=== PATIENT | male | born 1960 | race Caucasian/White ===

== ENCOUNTER → 2022-03-24 15:15 | Outpatient (CLI) | payer MEDICARE, SELFPAY ==
[2022-03-24 20:00] LABS: INR 2.88 (0.9-1.1); Prothrombin Time 29.3 seconds (10.1-12.5)
== END ==
PROVIDERS: PCP Family Medicine; Visit Provider Family Medicine
DX: Z79.01 Long term (current) use of anticoagulants (principal); Z51.81 Encounter for therapeutic drug level monitoring
CPT/HCPCS: 85610

== ENCOUNTER → 2022-09-28 10:17 | Outpatient (CLI) | payer MEDICARE, SELFPAY ==
[2022-09-28 17:05] LABS: Basophils # 0.1 K/mm3 (0-0.2); Basophils % 0.9 % (0.1-2.0); Eosinophils # 0.3 K/mm3 (0.0-0.4); Eosinophils % 2.8 % (0.1-12.0); Hematocrit 48.4 % (42.0-52.0); Hemoglobin 16.8 g/dL (14.1-18.0); Lymphocytes # 2.7 K/mm3 (0.7-4.5); Mean Corpuscular HGB Conc 34.6 g/dL (31.8-35.4); Mean Corpuscular Hemoglobin 32.6 pg (27.0-31.2); Mean Corpuscular Volume 94.1 fl (80-94); Mean Platelet Volume 10.8 fl (7.4-10.4); Monocytes # 0.4 K/mm3 (0.1-1.0); Monocytes % 3.7 % (1.7-9.3); Neutrophils # 7.4 K/mm3 (1.8-7.8); Neutrophils % 67.6 % (37.0-80.0); Platelet Count 191 K/mm3 (142-424); Red Blood Count 5.14 M/mm3 (4.60-6.20); Red Cell Distribution Width 13.1 % (11.5-17.5); White Blood Count 10.9 K/mm3 (4.8-10.8)
[2022-09-28 17:19] LABS: Erythrocyte Sedimentation Rate 13 mm/hr (0-20)
[2022-09-28 18:19] LABS: Chloride 87 mmol/L (98-107); Potassium 3.6 mmoL/L (3.5-5.1); Sodium 127 mmol/L (136-145)
[2022-09-28 18:22] LABS: Alanine Aminotransferase 26 U/L (12-78); Albumin Level 4.5 g/dl (3.5-5.0); Albumin/Globulin Ratio 1.9 (1.1-1.8); Alkaline Phosphatase 242 U/L (38-126); Anion Gap 13.6 mEq/L (5-15); Aspartate Amino Transferase 28 U/L (17-59); Bilirubin,Total 0.8 mg/dl (0.2-1.3); Blood Urea Nitrogen 14 mg/dl (9-20); Calcium 9.4 mg/dl (8.4-10.2); Carbon Dioxide 30 mmol/L (22.0-30.0); Estimated Glomerular Filt Rate 68 ml/min (>60); GFR (African American) 83 ML/MIN (>60); Globulin 2.4 g/dL (1.3-3.2); Total Protein,Serum 6.9 g/dl (6.3-8.2)
[2022-09-28 18:40] LABS: T4 (Thyroxine) 11.4 ug/dl (5.53-11.0)
[2022-09-28 18:48] LABS: Glucose 597 mg/dl (74-100)
[2022-09-28 18:53] LABS: Thyroid Stimulating Hormone 1.76 uIU/mL (0.465-4.68)
[2022-09-29 16:40] LABS: Hemoglobin A1C > 14.0 % (4.0-6.0)
[2022-09-30 09:17] LABS: RA Latex Turbid. <10.0 IU/mL (<14.0)
[2022-10-09 02:07] LABS: Antinuclear Antibodies (ANA) POSITIVE
== END ==
PROVIDERS: PCP Family Medicine; Visit Provider Family Medicine
DX: R53.83 Other fatigue (principal); R63.4 Abnormal weight loss; I10 Essential (primary) hypertension; R73.9 Hyperglycemia, unspecified
CPT/HCPCS: 80053; 83036; 84436; 84443; 85025; 85651; 86038; 86431

== ENCOUNTER → 2022-10-02 11:19 | Outpatient (CLI) | payer MEDICARE, SELFPAY ==
[2022-10-02 17:30] LABS: INR 3.44 (0.9-1.1); Prothrombin Time 34.6 seconds (10.1-12.5)
== END ==
PROVIDERS: PCP Family Medicine; Visit Provider Family Medicine
DX: Z79.01 Long term (current) use of anticoagulants (principal); Z51.81 Encounter for therapeutic drug level monitoring
CPT/HCPCS: 85610

== ENCOUNTER → 2022-11-01 19:14 | Outpatient (CLI) | payer MEDICARE, SELFPAY ==
[2022-11-01 17:18] LABS: INR 4.76 (0.9-1.1)
[2022-11-01 17:43] LABS: Prothrombin Time 47.1 seconds (10.1-12.5)
[2022-11-03 13:17] LABS: Anti-Centromere B Antibodies 1.2 AI (0.0-0.9); Anti-DNA (DS) Ab Qn <1 IU/mL (0-9); Anti-Jo-1 <0.2 AI (0.0-0.9); Anti-Smith Antibody <0.2 AI (0.0-0.9); Antichromatin Antibodies <0.2 AI (0.0-0.9); Antiscleroderma-70 Antibodies <0.2 AI (0.0-0.9); RNP Antibodies <0.2 AI (0.0-0.9); Sjogren's Anti-SS-A <0.2 AI (0.0-0.9); Sjogren's Anti-SS-B <0.2 AI (0.0-0.9)
== END ==
PROVIDERS: PCP Family Medicine; Visit Provider Family Medicine
DX: Z79.01 Long term (current) use of anticoagulants (principal); R76.8 Other specified abnormal immunological findings in serum; Z51.81 Encounter for therapeutic drug level monitoring
CPT/HCPCS: 85610; 86225; 86235

== ENCOUNTER → 2022-11-22 17:31 | Outpatient (CLI) | payer MEDICARE, SELFPAY ==
[2022-11-22 17:10] LABS: INR 3.73 (0.9-1.1); Prothrombin Time 37.4 seconds (10.1-12.5)
== END ==
PROVIDERS: PCP Family Medicine; Visit Provider Family Medicine
DX: Z79.01 Long term (current) use of anticoagulants (principal); Z51.81 Encounter for therapeutic drug level monitoring
CPT/HCPCS: 85610

== ENCOUNTER → 2023-01-02 14:27 | Outpatient (CLI) | payer MEDICARE, SELFPAY ==
[2023-01-02 14:14] LABS: Hemoglobin A1C 8.1 % (4.0-6.0)
[2023-01-02 14:20] LABS: Creatinine,Urine Random 223 mg/dL (Not Estab.)
[2023-01-02 14:25] LABS: INR 1.09 (0.9-1.1); Prothrombin Time 11.7 seconds (10.1-12.5)
== END ==
PROVIDERS: PCP Family Medicine; Visit Provider Family Medicine
DX: E11.9 Type 2 diabetes mellitus without complications (principal); Z79.01 Long term (current) use of anticoagulants; Z51.81 Encounter for therapeutic drug level monitoring; Z79.84 Long term (current) use of oral hypoglycemic drugs
CPT/HCPCS: 82043; 82570; 83036; 85610

== ENCOUNTER → 2023-02-07 11:00 | Outpatient (CLI) | payer MEDICARE, SELFPAY ==
[2023-02-07 16:44] LABS: INR 2.07 (0.9-1.1); Prothrombin Time 21.5 seconds (10.1-12.5)
== END ==
PROVIDERS: PCP Family Medicine; Visit Provider Family Medicine
DX: I48.91 Unspecified atrial fibrillation (principal); Z51.81 Encounter for therapeutic drug level monitoring; Z79.01 Long term (current) use of anticoagulants
CPT/HCPCS: 85610

== ENCOUNTER → 2023-03-13 16:53 | Outpatient (CLI) | payer MEDICARE, SELFPAY ==
[2023-03-13 17:00] LABS: Prothrombin Time 64.2 seconds (10.1-12.5)
[2023-03-13 17:01] LABS: INR 6.73 (0.9-1.1)
== END ==
PROVIDERS: PCP Family Medicine; Visit Provider Family Medicine
DX: Z51.81 Encounter for therapeutic drug level monitoring (principal); Z79.01 Long term (current) use of anticoagulants
CPT/HCPCS: 85610

== ENCOUNTER → 2023-04-06 07:04 | Outpatient (CLI) | payer MEDICARE, SELFPAY ==
[2023-04-06 16:29] LABS: Basophils # 0.1 K/mm3 (0-0.2); Basophils % 0.7 % (0.1-2.0); Eosinophils # 0.3 K/mm3 (0.0-0.4); Hematocrit 47.6 % (42.0-52.0); Hemoglobin 15.2 g/dL (14.1-18.0); Lymphocytes # 3.2 K/mm3 (0.7-4.5); Lymphocytes % 28.8 % (10-50); Mean Corpuscular Hemoglobin 32.1 pg (27.0-31.2); Mean Corpuscular Volume 100.5 fl (80-94); Mean Platelet Volume 9.9 fl (7.4-10.4); Monocytes # 0.5 K/mm3 (0.1-1.0); Monocytes % 4.1 % (1.7-9.3); Neutrophils # 7.1 K/mm3 (1.8-7.8); Neutrophils % 63.5 % (37.0-80.0); Platelet Count 246 K/mm3 (142-424); Red Blood Count 4.73 M/mm3 (4.60-6.20); Red Cell Distribution Width 13.5 % (11.5-17.5); White Blood Count 11.1 K/mm3 (4.8-10.8)
[2023-04-06 16:58] LABS: Hemoglobin A1C 6.5 % (4.0-6.0)
[2023-04-06 17:07] LABS: INR 5.62 (0.9-1.1); Prothrombin Time 54.2 seconds (10.1-12.5)
[2023-04-06 17:09] LABS: Chloride 104 mmol/L (98-107); Potassium 4.2 mmoL/L (3.5-5.1); Sodium 138 mmol/L (136-145)
[2023-04-06 17:12] LABS: Alanine Aminotransferase 26 U/L (12-78); Albumin Level 4.1 g/dl (3.5-5.0); Albumin/Globulin Ratio 1.5 (1.1-1.8); Alkaline Phosphatase 75 U/L (38-126); Anion Gap 16.2 mEq/L (5-15); Aspartate Amino Transferase 29 U/L (17-59); Bilirubin,Total 0.5 mg/dl (0.2-1.3); Blood Urea Nitrogen 15 mg/dl (9-20); Calcium 9.5 mg/dl (8.4-10.2); Carbon Dioxide 22 mmol/L (22.0-30.0); Estimated Glomerular Filt Rate 48 ml/min (>60); GFR (African American) 58 ML/MIN (>60); Globulin 2.7 g/dL (1.3-3.2); Glucose 143 mg/dl (74-100); Total Protein,Serum 6.8 g/dl (6.3-8.2)
== END ==
PROVIDERS: PCP Family Medicine; Visit Provider Family Medicine
DX: Z79.01 Long term (current) use of anticoagulants (principal); I10 Essential (primary) hypertension; E11.9 Type 2 diabetes mellitus without complications; Z51.81 Encounter for therapeutic drug level monitoring; Z79.84 Long term (current) use of oral hypoglycemic drugs
CPT/HCPCS: 80053; 83036; 85025; 85610

== ENCOUNTER → 2023-04-27 08:31 | Outpatient (CLI) | payer MEDICARE, SELFPAY ==
[2023-04-27 18:02] LABS: INR 5.35 (0.9-1.1); Prothrombin Time 51.8 seconds (10.1-12.5)
== END ==
PROVIDERS: PCP Family Medicine; Visit Provider Family Medicine
DX: Z79.01 Long term (current) use of anticoagulants (principal)
CPT/HCPCS: 85610

== ENCOUNTER → 2023-05-07 23:25 | Outpatient (CLI) | payer MEDICARE, SELFPAY ==
[2023-05-07 17:15] LABS: INR 1.08 (0.9-1.1); Prothrombin Time 11.6 seconds (10.1-12.5)
== END ==
PROVIDERS: PCP Family Medicine; Visit Provider Family Medicine
DX: Z79.01 Long term (current) use of anticoagulants (principal)
CPT/HCPCS: 85610

== ENCOUNTER → 2023-05-25 15:10 | Outpatient (CLI) | payer MEDICARE, SELFPAY ==
[2023-05-25 18:58] LABS: Prothrombin Time 12.8 seconds (10.1-12.5)
== END ==
PROVIDERS: PCP Family Medicine; Visit Provider Nurse Practitioner Family
DX: I35.9 Nonrheumatic aortic valve disorder, unspecified (principal)
CPT/HCPCS: 85610

== ENCOUNTER → 2023-06-22 08:43 | Outpatient (CLI) | payer MEDICARE, SELFPAY ==
[2023-06-22 16:59] LABS: INR 2.06 (0.9-1.1); Prothrombin Time 21.2 seconds (10.1-12.5)
== END ==
PROVIDERS: PCP Family Medicine; Visit Provider Family Medicine
DX: D69.9 Hemorrhagic condition, unspecified (principal)
CPT/HCPCS: 85610

== ENCOUNTER 2023-08-03 16:20 | Outpatient (CLI) | payer MEDICARE, SELFPAY ==
[2023-08-03 16:48] LABS: INR 1.21 (0.9-1.1); Prothrombin Time 12.9 seconds (10.1-12.5)
== END 2023-08-03 23:59 ==
LOC: LAB.DROPOF 16:20
PROVIDERS: PCP Nurse Practitioner Family; Visit Provider Nurse Practitioner Family
DX: Z79.01 Long term (current) use of anticoagulants (principal); Z51.81 Encounter for therapeutic drug level monitoring
CPT/HCPCS: 85610

== ENCOUNTER 2023-08-31 16:27 | Outpatient (CLI) | payer MEDICARE, SELFPAY ==
[2023-08-31 16:49] LABS: Basophils # 0.1 K/mm3 (0-0.2); Basophils % 0.7 % (0.1-2.0); Eosinophils # 0.2 K/mm3 (0.0-0.4); Eosinophils % 1.8 % (0.1-12.0); Hematocrit 46.6 % (42.0-52.0); Hemoglobin 15.5 g/dL (14.1-18.0); Lymphocytes # 3.8 K/mm3 (0.7-4.5); Mean Corpuscular HGB Conc 33.3 g/dL (31.8-35.4); Mean Corpuscular Hemoglobin 33.2 pg (27.0-31.2); Mean Corpuscular Volume 99.6 fl (80-94); Mean Platelet Volume 9.5 fl (7.4-10.4); Monocytes # 0.6 K/mm3 (0.1-1.0); Neutrophils # 7.2 K/mm3 (1.8-7.8); Neutrophils % 60.4 % (37.0-80.0); Platelet Count 236 K/mm3 (142-424); Red Blood Count 4.67 M/mm3 (4.60-6.20); Red Cell Distribution Width 13.4 % (11.5-17.5); White Blood Count 11.9 K/mm3 (4.8-10.8)
[2023-08-31 16:55] LABS: INR 1.86 (0.9-1.1); Prothrombin Time 19.3 seconds (10.1-12.5)
[2023-08-31 16:56] LABS: Alanine Aminotransferase 26 U/L (12-78); Albumin Level 4.2 g/dl (3.5-5.0); Albumin/Globulin Ratio 1.7 (1.1-1.8); Alkaline Phosphatase 95 U/L (38-126); Aspartate Amino Transferase 28 U/L (17-59); Bilirubin,Total 0.6 mg/dl (0.2-1.3); Blood Urea Nitrogen 15 mg/dl (9-20); Calcium 9.7 mg/dl (8.4-10.2); Carbon Dioxide 29 mmol/L (22.0-30.0); Chloride 100 mmol/L (98-107); Estimated Glomerular Filt Rate 56 ml/min (>60); GFR (African American) 68 ML/MIN (>60); Globulin 2.5 g/dL (1.3-3.2); Glucose 162 mg/dl (74-100); Sodium 137 mmol/L (136-145); Total Protein,Serum 6.7 g/dl (6.3-8.2)
[2023-08-31 19:44] LABS: Hemoglobin A1C 7.1 % (4.0-6.0)
== END 2023-08-31 23:59 ==
LOC: LAB.DROPOF 16:28
PROVIDERS: PCP Family Medicine; Visit Provider Family Medicine
DX: E11.9 Type 2 diabetes mellitus without complications (principal); Z79.01 Long term (current) use of anticoagulants; I10 Essential (primary) hypertension; Z79.84 Long term (current) use of oral hypoglycemic drugs
CPT/HCPCS: 80053; 83036; 85025; 85610

== ENCOUNTER 2023-10-04 16:47 | Outpatient (CLI) | payer MEDICARE, SELFPAY ==
[2023-10-04 17:05] LABS: INR 4.09 (0.9-1.1); Prothrombin Time 40.3 seconds (10.1-12.5)
== END 2023-10-04 23:59 ==
LOC: LAB.DROPOF 16:47
PROVIDERS: PCP Family Medicine; Visit Provider Family Medicine
DX: Z51.81 Encounter for therapeutic drug level monitoring (principal); Z79.01 Long term (current) use of anticoagulants
CPT/HCPCS: 85610

== ENCOUNTER 2023-12-03 10:39 | Outpatient (CLI) | payer MEDICARE, SELFPAY ==
[2023-12-03 16:32] LABS: INR 2.66 (0.9-1.1); Prothrombin Time 26.9 seconds (10.1-12.5)
== END 2023-12-03 23:59 | disposition home or self-care (01) ==
LOC: LAB.DROPOF 12-04 10:40
PROVIDERS: PCP Family Medicine; Visit Provider Family Medicine
DX: Z79.01 Long term (current) use of anticoagulants (principal); Z51.81 Encounter for therapeutic drug level monitoring
CPT/HCPCS: 85610

== ENCOUNTER 2024-01-23 10:36 | Outpatient (CLI) | payer MEDICARE, SELFPAY ==
[2024-01-23 17:52] LABS: INR 2.86 (0.9-1.1); Prothrombin Time 28.9 seconds (10.1-12.5)
== END 2024-01-23 23:59 | disposition home or self-care (01) ==
LOC: LAB.DROPOF 01-24 10:36
PROVIDERS: PCP Nurse Practitioner Family; Visit Provider Nurse Practitioner Family
DX: I48.91 Unspecified atrial fibrillation (principal)
CPT/HCPCS: 85610

== ENCOUNTER 2024-02-29 16:52 | Outpatient (CLI) | payer MEDICARE, SELFPAY ==
[2024-02-29 16:32] LABS: INR 4.53 (0.9-1.1); Prothrombin Time 43.7 seconds (10.1-12.5)
== END 2024-02-29 23:59 | disposition home or self-care (01) ==
LOC: LAB.DROPOF 16:52
PROVIDERS: PCP Nurse Practitioner Family; Visit Provider Nurse Practitioner Family
DX: Z79.01 Long term (current) use of anticoagulants (principal)
CPT/HCPCS: 85610

== ENCOUNTER 2024-04-03 14:49 | Outpatient (CLI) | payer MEDICARE, SELFPAY ==
[2024-04-03 16:37] LABS: INR 2.22 (0.9-1.1)
== END 2024-04-03 23:59 | disposition home or self-care (01) ==
LOC: LAB.DROPOF 04-04 12:34
PROVIDERS: PCP Nurse Practitioner Family; Visit Provider Nurse Practitioner Family
DX: R79.1 Abnormal coagulation profile (principal); J32.9 Chronic sinusitis, unspecified; R53.83 Other fatigue
CPT/HCPCS: 85610

== ENCOUNTER 2024-04-24 11:17 | Outpatient (CLI) | payer MEDICARE, SELFPAY ==
--- NOTE | 2024-04-24 11:23 | CT_ITS ---
FINAL REPORT TECHNIQUE: Axial images through the abdomen and pelvis were performed without contrast.This study was performed with techniques to keep radiation doses as low as reasonably achievable, (ALARA). Individualized dose reduction techniques using automated exposure control or adjustment of mA and/or kV according to the patient's size were employed. CLINICAL HISTORY: abdominal bruising right lower abdomen bruising pt on blood thinner FINDINGS: ABDOMEN: There is streak artifact from pacemaker leads. The lung bases are clear. The heart size is normal. Limited images of the liver demonstrate moderate fatty infiltration. Patient is status postcholecystectomy. There are calcified granulomas in the spleen. No adrenal mass is identified. The aorta is normal in caliber. There is no significant free fluid or adenopathy. There is no nephrolithiasis. There is no hydronephrosis. There is a small fat-containing umbilical hernia. Subcutaneous soft tissue stranding is seen in the right anterior pelvic wall. No mass or discrete fluid collection is seen. PELVIS: The appendix is at the upper limits of normal in size but is air-filled and without surrounding inflammation. The urinary bladder is unremarkable. There is no significant free fluid or adenopathy. There is a fat-containing left inguinal hernia. There are advanced changes of degenerative disc disease at L5-S1. IMPRESSION: Stranding in the right anterior pelvic wall without definite mass or fluid collection. Left inguinal hernia. Reviewed, Interpreted and Dictated by Sourav Martins MD Transcribed by Katie Da Silva Authenticated and [facility]
[2024-04-24 13:20] LABS: Basophils # 0.1 K/mm3 (0-0.2); Basophils % 0.9 % (0.1-2.0); Eosinophils # 0.2 K/mm3 (0.0-0.4); Eosinophils % 2.1 % (0.1-12.0); Hematocrit 45.2 % (42.0-52.0); Hemoglobin 16.1 g/dL (14.1-18.0); Lymphocytes # 3.1 K/mm3 (0.7-4.5); Lymphocytes % 29.1 % (10-50); Mean Corpuscular HGB Conc 35.5 g/dL (31.8-35.4); Mean Corpuscular Hemoglobin 33.4 pg (27.0-31.2); Mean Platelet Volume 9.7 fl (7.4-10.4); Monocytes # 0.6 K/mm3 (0.1-1.0); Monocytes % 5.9 % (1.7-9.3); Neutrophils # 6.6 K/mm3 (1.8-7.8); Neutrophils % 62.1 % (37.0-80.0); Platelet Count 228 K/mm3 (142-424); Red Blood Count 4.81 M/mm3 (4.60-6.20); Red Cell Distribution Width 13.9 % (11.5-17.5); White Blood Count 10.7 K/mm3 (4.8-10.8)
[2024-04-24 13:46] LABS: Prothrombin Time 57.1 seconds (10.1-12.5)
== END 2024-04-24 23:59 | disposition home or self-care (01) ==
PROVIDERS: PCP Family Medicine; Visit Provider Family Medicine
DX: K40.90 Unilateral inguinal hernia, without obstruction or gangrene, not specified as recurrent (principal); T14.8XXA Other injury of unspecified body region, initial encounter; Z79.01 Long term (current) use of anticoagulants
CPT/HCPCS: 36415; 74176; 85025; 85610

== ENCOUNTER 2024-05-08 16:32 | Outpatient (CLI) | payer MEDICARE, SELFPAY ==
[2024-05-08 16:58] LABS: INR 1.78 (0.9-1.1); Prothrombin Time 18.8 seconds (10.1-12.5)
== END 2024-05-08 23:59 | disposition home or self-care (01) ==
LOC: LAB.DROPOF 16:33
PROVIDERS: PCP Family Medicine; Visit Provider Family Medicine
DX: Z79.01 Long term (current) use of anticoagulants (principal)
CPT/HCPCS: 85610

== ENCOUNTER 2024-06-05 14:30 | Outpatient (CLI) | payer MEDICARE, SELFPAY ==
[2024-06-05 16:31] LABS: Prothrombin Time 28.3 seconds (10.1-12.5)
== END 2024-06-05 23:59 | disposition home or self-care (01) ==
LOC: LAB.DROPOF 06-06 07:07
PROVIDERS: PCP Family Medicine; Visit Provider Family Medicine
DX: Z79.01 Long term (current) use of anticoagulants (principal)
CPT/HCPCS: 85610

== ENCOUNTER 2024-06-06 10:30 | Outpatient (CLI) | payer MEDICARE, SELFPAY ==
[2024-06-06 16:50] LABS: Microalbumin/Creatinine Ratio 9.5
[2024-06-06 16:51] LABS: Basophils # 0.1 K/mm3 (0-0.2); Basophils % 0.9 % (0.1-2.0); Eosinophils # 0.2 K/mm3 (0.0-0.4); Eosinophils % 2.1 % (0.1-12.0); Hematocrit 46.9 % (42.0-52.0); Hemoglobin 16.1 g/dL (14.1-18.0); Lymphocytes # 2.3 K/mm3 (0.7-4.5); Lymphocytes % 25.5 % (10-50); Mean Corpuscular HGB Conc 34.4 g/dL (31.8-35.4); Mean Corpuscular Hemoglobin 33.5 pg (27.0-31.2); Mean Corpuscular Volume 97.5 fl (80-94); Mean Platelet Volume 10.1 fl (7.4-10.4); Monocytes # 0.5 K/mm3 (0.1-1.0); Monocytes % 5.5 % (1.7-9.3); Neutrophils % 66.1 % (37.0-80.0); Platelet Count 243 K/mm3 (142-424); Red Blood Count 4.81 M/mm3 (4.60-6.20); Red Cell Distribution Width 13.4 % (11.5-17.5); White Blood Count 9.1 K/mm3 (4.8-10.8)
[2024-06-06 16:57] LABS: Creatinine,Urine Random 264 mg/dL (Not Estab.)
[2024-06-06 17:05] LABS: Albumin Level 4.6 g/dl (3.5-5.0); Chloride 101 mmol/L (98-107); Sodium 135 mmol/L (136-145)
[2024-06-06 17:08] LABS: Alanine Aminotransferase 28 U/L (12-78); Albumin/Globulin Ratio 1.8 (1.1-1.8); Alkaline Phosphatase 77 U/L (38-126); Aspartate Amino Transferase 31 U/L (17-59); Bilirubin,Total 0.9 mg/dl (0.2-1.3); Blood Urea Nitrogen 16 mg/dl (9-20); Calcium 9.4 mg/dl (8.4-10.2); Carbon Dioxide 24 mmol/L (22.0-30.0); Cholesterol 233 mg/dl (140-200); Estimated Glomerular Filt Rate 56 ml/min (>60); GFR (African American) 68 ML/MIN (>60); Globulin 2.6 g/dL (1.3-3.2); Glucose 161 mg/dl (74-100); Total Protein,Serum 7.2 g/dl (6.3-8.2); Triglycerides 263 mg/dl (30-150); VLDL Cholesterol 53 mg/dL (0-40)
[2024-06-06 17:09] LABS: Chol/HDL Ratio 6.5 (1-3.5); HDL Cholesterol 36 mg/dl (40-60)
[2024-06-06 17:19] LABS: Direct LDL Cholesterol 132.07 mg/dL (100-129)
[2024-06-06 17:55] LABS: Hemoglobin A1C 7.4 % (4.0-6.0)
[2024-06-06 17:59] LABS: Thyroid Stimulating Hormone 1.43 uIU/mL (0.465-4.68)
[2024-06-06 18:17] LABS: HIV (1&2) Antibody Rapid NONREACTIVE (NONREACTIVE)
[2024-06-06 18:47] LABS: Prostate Specific Ag Screen 0.5 ng/ml (0.0-4.0)
[2024-06-07 09:14] LABS: HCV Ab Non Reactive (Non Reactive)
== END 2024-06-06 23:59 | disposition home or self-care (01) ==
LOC: LAB.DROPOF 06-09 10:27
PROVIDERS: PCP Family Medicine; Visit Provider Family Medicine
DX: E11.9 Type 2 diabetes mellitus without complications (principal); Z12.5 Encounter for screening for malignant neoplasm of prostate; I10 Essential (primary) hypertension
CPT/HCPCS: 80053; 80061; 82043; 82570; 83036; 84443; 85025; 86803; 87389; G0103

== ENCOUNTER 2024-07-01 15:00 | Outpatient (CLI) | payer MEDICARE, SELFPAY ==
[2024-07-01 16:49] LABS: INR 3.33 (0.9-1.1); Prothrombin Time 33.1 seconds (10.1-12.5)
== END 2024-07-01 23:59 | disposition home or self-care (01) ==
LOC: LAB.DROPOF 07-02 09:59
PROVIDERS: PCP Family Medicine; Visit Provider Family Medicine
DX: Z79.01 Long term (current) use of anticoagulants (principal)
CPT/HCPCS: 85610

== ENCOUNTER 2024-08-05 14:15 | Outpatient (CLI) | payer OTHER, SELFPAY ==
[2024-08-05 17:29] LABS: INR 2.67 (0.9-1.1); Prothrombin Time 27.1 seconds (10.1-12.5)
== END 2024-08-05 23:59 | disposition home or self-care (01) ==
LOC: LAB.DROPOF 08-06 13:29
PROVIDERS: PCP Family Medicine; Visit Provider Family Medicine
DX: Z79.01 Long term (current) use of anticoagulants (principal)
CPT/HCPCS: 85610

== ENCOUNTER 2024-10-02 14:42 | Outpatient (CLI) | payer OTHER, SELFPAY ==
[2024-10-02 19:22] LABS: INR 5.16 (0.9-1.1); Prothrombin Time 49.1 seconds (10.1-12.5)
--- NOTE | 2024-10-02 19:36 | EXP.EVENT.NO ---
I contacted patient at 7:34 PM on 10/02. He stated that he felt that his blood was getting a little thing, so he did not take his warfarin yesterday and has not yet taken it today. I instructed patient not to take warfarin today and to follow-up with his family doctor tomorrow, 10/03. He stated he already has phone call follow-up with them tomorrow. I recommended he let them know that his INR was elevated greater than 5 and to follow their recommendations. He voices understanding. States that he has some easy bruising, otherwise no signs or symptoms of bleeding. MD Danielito
== END 2024-10-02 23:59 | disposition home or self-care (01) ==
LOC: LAB.DROPOF 10-03 10:05
PROVIDERS: PCP Family Medicine; Visit Provider Family Medicine
DX: Z79.01 Long term (current) use of anticoagulants (principal)
CPT/HCPCS: 85610

== ENCOUNTER 2024-10-28 14:40 | Outpatient (CLI) | payer OTHER, SELFPAY ==
[2024-10-28 17:53] LABS: INR 3.67 (0.9-1.1); Prothrombin Time 36.1 seconds (10.1-12.5)
== END 2024-10-28 23:59 | disposition home or self-care (01) ==
LOC: LAB.DROPOF 10-29 09:16
PROVIDERS: PCP Family Medicine; Visit Provider Family Medicine
DX: Z79.01 Long term (current) use of anticoagulants (principal)
CPT/HCPCS: 85610

== ENCOUNTER 2024-12-22 14:30 | Outpatient (CLI) | payer OTHER, SELFPAY ==
[2024-12-22 16:40] LABS: Basophils # 0.1 K/mm3 (0-0.2); Basophils % 0.7 % (0.1-2.0); Eosinophils # 0.4 Kmm3 (0.0-0.4); Eosinophils % 3.9 % (0.1-12.0); Hematocrit 43.1 % (42.0-52.0); Hemoglobin 14.4 g/dL (14.1-18.0); Immature Granulocytes # 0.07 10^3uL; Immature Granulocytes % 0.7 %; Lymphocytes # 3.1 K/mm3 (0.7-4.5); Lymphocytes % 32.3 % (10-50); Mean Corpuscular HGB Conc 33.4 g/dL (31.8-35.4); Mean Corpuscular Hemoglobin 32.3 pg (27.0-31.2); Mean Corpuscular Volume 96.6 fl (80-94); Mean Platelet Volume 11.6 fl (7.4-10.4); Monocytes # 0.6 K/mm3 (0.1-1.0); Monocytes % 6.6 % (1.7-9.3); Neutrophils # 5.3 K/mm3 (1.8-7.8); Neutrophils % 55.8 % (37.0-80.0); Nucleated Red Blood Cells # 0 10^3/uL; Nucleated Red Blood Cells % 0 %; Platelet Count 215 K/mm3 (142-424); Red Blood Count 4.46 M/mm3 (4.60-6.20); Red Cell Distribution Width 13.5 % (11.5-17.5); White Blood Count 9.5 K/mm3 (4.8-10.8)
[2024-12-22 17:04] LABS: Alanine Aminotransferase 18 U/L (12-78); Albumin Level 4.3 g/dl (3.5-5.0); Albumin/Globulin Ratio 1.7 (1.1-1.8); Alkaline Phosphatase 73 U/L (38-126); Aspartate Amino Transferase 25 U/L (17-59); Bilirubin,Total 0.6 mg/dl (0.2-1.3); Blood Urea Nitrogen 10 mg/dl (9-20); Calcium 9.1 mg/dl (8.4-10.2); Carbon Dioxide 24 mmol/L (22.0-30.0); Chloride 108 mmol/L (98-107); Estimated Glomerular Filt Rate 61 ml/min (>60); GFR (African American) 74 ML/MIN (>60); Globulin 2.5 g/dL (1.3-3.2); Glucose 93 mg/dl (74-100); Sodium 138 mmol/L (136-145); Total Protein,Serum 6.8 g/dl (6.3-8.2)
[2024-12-22 17:23] LABS: Prothrombin Time 89.8 seconds (10.1-12.5)
[2024-12-22 17:35] LABS: Thyroid Stimulating Hormone 0.99 uIU/mL (0.465-4.68)
== END 2024-12-22 23:59 | disposition home or self-care (01) ==
LOC: LAB.DROPOF 12-23 11:50
PROVIDERS: PCP Family Medicine; Visit Provider Family Medicine
DX: E11.9 Type 2 diabetes mellitus without complications (principal); Z79.01 Long term (current) use of anticoagulants
CPT/HCPCS: 80053; 84443; 85025; 85610

== ENCOUNTER 2024-12-29 14:30 | Outpatient (CLI) | payer OTHER, SELFPAY ==
[2024-12-29 17:17] LABS: Prothrombin Time 54.9 seconds (10.1-12.5)
[2024-12-29 17:18] LABS: INR 5.62 (0.9-1.1)
== END 2024-12-29 23:59 | disposition home or self-care (01) ==
LOC: LAB.DROPOF 12-30 14:42
PROVIDERS: PCP Family Medicine; Visit Provider Family Medicine
DX: Z79.01 Long term (current) use of anticoagulants (principal)
CPT/HCPCS: 85610

== ENCOUNTER 2025-01-26 15:21 | Outpatient (CLI) | payer OTHER, SELFPAY ==
[2025-01-26 18:39] LABS: Prothrombin Time 54.0 seconds (10.1-12.5)
[2025-01-26 18:40] LABS: INR 5.52 (0.9-1.1)
== END 2025-01-26 23:59 | disposition home or self-care (01) ==
LOC: LAB.DROPOF 01-27 09:54
PROVIDERS: PCP Family Medicine; Visit Provider Family Medicine
DX: Z79.01 Long term (current) use of anticoagulants (principal)
CPT/HCPCS: 85610

== ENCOUNTER 2025-03-02 15:00 | Outpatient (CLI) | payer OTHER, SELFPAY ==
--- OUTSIDE RECORDS SUMMARY | 2025-02-25 13:45 | XMS_ITS | Encounter Summary ---
Author Organization [facility] Address [address] [place] [address] Care Team Providers Care Epic Application Coordinator Name Role Phone Alvarez Rae MD Primary Care Provider +1- [phone] Reason for Referral * Diagnostic Imaging (Routine) - Pending Review Specialty Diagnoses / Procedures Referred By Contac t Referred To Contact Diagnoses H/O mechanical aortic valve replacement Procedures Adult Transthoracic Echo Complete W/ Cont if Necessary Per Protocol [place] [address] Phone: tel: fax: [address] [place] [address] Phone: tel: fax: Referral ID Status Reason [...] well on current therapy. DL is in [facility]. Encounter Details Date Type Department [facility] Description 02/25/2025 1:45 PM EDT Office Visit [facility] [address] [place] [address] Kim Daigle MD [address] [place] [address] H/O mechanical aortic valve replacement (Primary Dx); ICD (implantable cardioverter-defibril lator), dual, in situ [Z95.810]; MATTY treated with BiPAP Social History Tobacco Use Types Packs/Day Years Used Date Smoking Tobacco: Every Day Cigarettes 1 40.6 Started: 1984 Passive Smoke Exposure: Never Smokeless [...] well on current therapy. DL is in [facility]. Subjective History of Present Illness Nir Pineda is a 64 y.o. male with niCMP, AVR, ICD who presents today for follow up. Still having beeping from alarms for battery wanring. No change in ICD parameters States that feels good. Denies chest pain or palpitations Denies shortness of breath. Denies swelling Denies lightheadedness or syncope. 02/25/2025 Updated Cardiac history 1. CAD, [id number] per [facility] in 2014 2. Cardiomyopathy 3. Hypertension 4. Mechanical aortic valve replacement 2015 5. MATTY with baseline AHI of [address] 6. [employer] Echocardiogram 03/19/2023 ?? Left ventricular systolic function [...] for primary prevention, Dr. Fabio Fernandes, 06/30/2015: [employer] D140. CHOLECYSTECTOMY 02/2015 Due to acute cholecystitis [...] appointment. Micah Daigle MD Cardiology and Sleep [facility] 02/25/2025 Please note that this explicitly [...] Description 08/31/2025 10:30 AM EST Ancillary Procedure [facility] [address] [place] [address] 08/31/2025 11:30 AM EST Office Visit [facility] [place] [address] Kim Daigle MD [address] [place] [address] 09/14/2025 10:30 AM EST Office Visit [facility] [address] [place] [address] [place] [address] Kim Daigle MD [address] [place] [address] [place] [address] 09/14/2025 10:30 AM EST Clinical Support No Requirements [facility] [address] [place] [address] [place] [address] Scheduled Orders Name Type Priority Associated Diagnoses Orde r Schedule Adult Transthoracic Echo Complete W/ Cont if Necessary Per Protocol Echocardiography Routine H/O mechanical aortic valve replacement Expected: 08/24/2025, Expires: 02/25/2026 documented as of this encounter Visit Diagnoses Diagnosis H/O mechanical aortic valve replacement- Primary ICD (implantable cardioverter-defibrillator), dual, in situ [Z95.810] MATTY treated with BiPAP documented in this encounter Care Teams Epic Application Coordinator Relationship Specialty Start Date End Date Alvarez Rae MD [address] [place] [address] PCP - General Family Medicine 03/19/23 documented as of this encounter
[2025-03-02 17:42] LABS: INR 8.00 (0.9-1.1); Prothrombin Time 90.0 seconds (10.1-12.5)
--- OUTSIDE RECORDS SUMMARY | 2025-03-03 14:40 | XMS_ITS | Encounter Summary ---
[facility] Organization [facility] Address [address] [place] [address] [address] Care [address] Lab Technician Name Role Phone Alvarez Rae MD Primary Care Provider +1- [phone] Reason for Visit * Reason Comments Med Refill Encounter Details Date Type Department Care Team ([facility] Contact Info) Description 09/13/2023 Refill [facility] [address] [place] [address] Kim Daigle MD [address] [place] [address] Med Refill Social History Tobacco Use Types Packs/Day Years Used Date Smoking Tobacco: Some Days Passive Smoke Exposure: Never Comments:6-7 cigarettes abel y Alcohol Use [...] Upcoming Encounters Date Type Department Care Team ([facility] Contact Info) Description 08/31/2025 10:30 AM EST Ancillary Procedure [facility] [address] [place] [address] 08/31/2025 11:30 AM EST Office Visit [facility] [address] [place] [address] Kim Daigle MD [address] [place] [address] 09/14/2025 10:30 AM EST Office Visit [facility] [address] [place] [address] Kim Daigle MD [address] [place] [address] 09/14/2025 10:30 AM EST Clinical Support No Requirements [facility] [address] [facility] [address] documented as of this encounter Visit Diagnoses Not on filedocumented in this encounter Care Teams Rd Lab Technician Relationship Specialty Start Date End Date Alvarez Rae MD [address] [place] [address] PCP - General Family Medicine 03/19/23 documented as of this encounter
--- OUTSIDE RECORDS SUMMARY | 2025-03-03 14:40 | XMS_ITS | Encounter Summary ---
Author Organization [facility] Address [address] [place] [address] Care Team Providers Care Reaming Machine Operator Name Role Phone Alvarez Rae MD Primary Care Provider +1- [phone] Encounter Details Date Type Department Care Team (Latest Contact Info) Description 02/25/2025 Travel Social History Tobacco Use Types Packs/Day Years [...] Description 08/31/2025 10:30 AM EST Ancillary Procedure [facility] [address] [place] [address] 08/31/2025 11:30 AM EST Office Visit [facility] [address] [place] [address] Kim Daigle MD [address] [place] [address] 09/14/2025 10:30 AM EST Office Visit [facility] [address] [place] [address] Kim Daigle MD [address] [place] [address] 09/14/2025 10:30 AM EST Clinical Support No Requirements [facility] [address] [place] [address] documented as of this encounter Visit Diagnoses Not on filedocumented in this encounter Care Teams Reaming Machine Operator Relationship Specialty Start Date End Date Alvarez Rae MD [address] [place] [address] PCP - General Family Medicine 03/19/23 documented as of this encounter
--- OUTSIDE RECORDS SUMMARY | 2025-03-03 14:40 | XMS_ITS | Encounter Summary ---
Author Organization [facility] Address [address] [place] [address] Care Team Providers Care Hog Slaughterer Name Role Phone Alvarez Rae MD Primary Care Provider +1- [phone] Reason for Visit * Reason Comments Med Refill Encounter Details Date Type Department Care Team (Late st Contact Info) Description 10/06/2023 Refill [facility] C[facility] [address] [place] [address] Kim Daigle MD [address] [place] [address] Med Refill Social History Tobacco Use [...] on file documented as of this encounter Miscellaneous Notes * Telephone Encounter - Zeyad Mckoy CMA - 10/08/2023 1:50 PM EDT Informed pharmacy that PCP manages warfarin. They have already taken care of it and faxed it to 's office. * Telephone Encounter - Zeyad Mckoy CMA - 10/08/2023 8:05 AM EDT No protocol. Please advise documented in this encounter Plan of Treatment Upcoming Encounters Date Type Department Care Team (Late st Contact Info) Description 08/31/2025 10:30 AM EST Ancillary Procedure [facility] C[facility] [address] [place] [address] [place] [address] 08/31/2025 11:30 AM EST Office Visit [facility] C[facility] [address] [place] [address] [place] [address] Kim Daigle MD [address] [place] [address] [place] [address] 09/14/2025 10:30 AM EST Office Visit [facility] [address] [place] [address] [place] [address] Kim Daigle MD CLINIC [place] [address] 09/14/2025 10:30 AM EST Clinical Support No Requirements [facility] [address] [place] [address] [place] [address] documented as of this encounter Visit Diagnoses Not on filedocumented in this encounter Care Teams Hog Slaughterer Relationship Specialty Start Date End Date Alvarez Rae MD [address] [place] [address] PCP - General Family Medicine 03/19/23 documented as of this encounter
--- OUTSIDE RECORDS SUMMARY | 2025-03-03 14:40 | XMS_ITS | Clinical Summary ---
Author Organization [facility] Address [address] [place] [address] Care Team Providers Care Chucking Lathe Operator Name Role Phone Alvarez Rae MD Primary Care Provider +1- [phone] Allergies Active Allergy Reactions Criticality Noted Date Comments Atorvastatin Myalgia Low 05/04/2016 Lisinopril Cough 05/04/2016 Medications furosemide (LASIX) 40 MG tablet Take 1 tablet by mouth Daily. 90 tablet 3 3 Active warfarin (COUMADIN) 10 MG tablet Take 1 tablet by mouth Daily. 90 tablet 3 3 Active venlafaxine (EFFEXOR) 75 MG tablet 1 TABLET BY MOUTH TWICE A DAY 180 tablet 3 3 Active lisinopril (PRINIVIL,ZESTR IL) 20 MG tablet 3 Active carvedilol (COREG) 12.5 MG tablet TAKE 1 TABLET BY MOUTH 2 (TWO) TIMES A DAY WITH MEALS. 180 tablet 1 5 Active tamsulosin (FLOMAX) 0.4 MG capsule 24 hr capsule Take 1 capsule by mouth Daily. 5 Active Tradjenta 5 MG tablet tablet 5 Active meloxicam (MOBIC) 7.5 MG tablet 5 Active spironolactone- hydrochlorothia zide (ALDACTAZIDE) 25-25 MG tablet Take 1 tablet by mouth Daily. 90 tablet 3 3 02/26/20 25 Discontinu ed(*Therap y completed) Mounjaro 2.5 MG/0.5ML solution auto-injector 5 02/26/20 25 Discontinu ed(*Therap y completed) Active Problems Problem Noted Date Diagnosed Date MATTY treated with BiPAP 03/17/2024 Assessment & Plan (09/15/2024 6:02 PM EST): Good compliance and control. Benefiting from PAP therapy and plan to continue. Assessment & Plan (03/17/2024 11:03 AM EDT): He did not bring device chip in today so download unavailable. He uses his BiPAP every night and denies any current issues. Airflow is comfortable. He denies excessive daytime sleepiness or fatigue. - Continue PAP therapy at current settings H/O mechanical aortic valve replacement 09/18/19 23 Assessment & Plan (09/15/2024 6:02 PM EST): Valve stable on echo today. Doing well on Coumadin. Assessment & Plan (03/17/2024 10:59 AM EDT): Patient is on Coumadin, INR checked and managed by primary care provider Dr. Rae. -Update echo at follow up visit in 6 months. Assessment & Plan (03/19/2023 8:58 PM EDT): Patient is on Coumadin, INR checked and managed by primary care provider Dr. Rae. Assessment & Plan (09/18/2022 1:00 PM EST): On Coumadin. Plan echo at next appointment. ICD (implantable cardioverter-defibrillator), rosalinda reyes, in situ 09/18/2022 Assessment & Plan (09/15/2024 6:02 PM EST): Good battery life and lead function. There is a warning about possible battery life being inaccurate. [employer] is going to come out today and check the downloaded information on the cnc operator programmer and [facility] services. Assessment & Plan (03/17/2024 11:00 AM EDT): Device interrogation today shows good battery life and lead function. No events noted. Assessment & Plan (03/19/2023 8:57 PM EDT): Device interrogation today shows good battery life and lead function. No events noted. Recommended a 6-month follow-up visit, patient is requesting annual visits, Assessment & Plan (09/18/2022 1:01 PM EST): Good battery life and lead function. Follow-up in 6 months. VHD (valvular heart disease) 05/04/2016 Overview (05/04/2016): a. Acute heart failure, 02/17/2015, with positive troponin. b. Cardiac catheterization, mild CAD, severe aortic stenosis (gradient of 60) with LVEF of 20%, February 2015. c. Aortic valve replacement (Dr. Keller) 03/10/2015, [facility] [facility] [employer]. Nonischemic cardiomyopathy 05/04/2016 Overview (05/04/2016): a. LVEF of 15% to 20% in the setting of severe aortic stenosis, February 2015. b. Repeat echocardiogram 06/09/2015, continued EF 20% to 25% with well seated aortic valve. c. Status post single-chamber ICD implantation for primary prevention, Dr. Fabio Fernandes, 06/30/2015: [employer] D140. d. DEVICE INTERROGATION: 11/08/2015; Patient had normal ICD function. Less than 1% of the time ventricularly paced, no therapies delivered Assessment & Plan (09/15/2024 6:02 PM EST): Euvolemic. Ejection fraction is stable. Assessment & Plan (03/17/2024 10:59 AM EDT): Stable. EF 36-40% on echo from 02/2023 -Continue current medical therapy Assessment & Plan (03/19/2023 8:59 PM EDT): Stable. EF 36-40% on echo today. Assessment & Plan (09/18/2022 1:00 PM EST): Euvolemic and stable. On medical therapy. Update EF at next appointment. CAD (coronary artery disease) 05/04/2016 Overview (05/04/2016): a. Cardiac catheterization, February 2015 with 30% RCA and LAD. LVEF 15% to 20%, critical aortic stenosis. Assessment & Plan (03/17/2024 11:00 AM EDT): Coronary artery disease is stable . Continue current treatment regimen. Cardiac status will be reassessed in 1 year. - Continue carvedilol and simvastatin at current doses. Assessment & Plan (03/19/2023 9:01 PM EDT): Coronary artery disease is stable . Continue current treatment regimen. Cardiac status will be reassessed in 1 year. - Continue carvedilol and simvastatin at current doses. Assessment & Plan (09/18/2022 1:00 PM EST): No new chest pain or symptoms. Continue medical therapy. Follow-up at next appointment. Essential hypertension 05/04/2016 Assessment & Plan (09/18/2022 1:01 PM EST): Controlled. Renew medications GERD (gastroesophageal reflux disease) 6 Encounters Date Type Department Care Team Description 02/25/2025 1:45 PM EDT Office Visit [facility] [address] [place] [address] Kim Daigle MD H/O mechanical aortic valve replacement (Primary Dx); ICD (implantable cardioverter-defibril lator), dual, in situ [Z95.810]; MATTY treated with BiPAP 02/25/2025 Travel from Last 3 Months Family History Medical History Relation Name Comments Heart attack Brother 1 Arrhythmia Father Coronary artery disease Father Diabetes Father Heart failure Father Hypertension Father Other Father Aortic valve re placed Crohn's disease Mother Heart attack Sister Relation Name Status Comments Brother 1 Alive Brother 2 Alive Father Alive Mother Alive Sister Alive Social History Tobacco Use Types Packs/Day Years [...] on file Sexual Orientation Not on file Last Filed Vital Signs Vital Sign Reading Time Taken Comments Blood Pressure 110/70 02/25/2025 1:39 PM EDT Pulse 83 02/25/2025 1:39 PM EDT Temperature 36.5 C (97.7 F) 03/26/2015 10:14 AM EDT Respiratory Rate - - Oxygen Saturation 96% 02/25/2025 1:39 PM EDT Inhaled Oxygen Concentration - - Weight 93.9 kg (207 lb) 02/25/2025 1:39 PM EDT Height 170.2 cm (5' 7 ) 02/25/2025 1:39 PM EDT Body Mass Index 32.42 02/25/2025 1:39 PM EDT Plan of Treatment Upcoming Encounters Date Type Department Care Team (Late st Contact Info) Description 08/31/2025 10:30 AM EST Ancillary Procedure [facility] [address] [place] [address] 08/31/2025 11:30 AM EST Office Visit [facility] [address] [address] [address] Kim Daigle MD [address] [place] [place] [address] 09/14/2025 10:30 AM EST Office Visit [facility] [address] [address] [address] Kim Daigle MD [address] [place] [place] [address] 09/14/2025 10:30 AM EST Clinical Support No Requirements [facility] [address] [place] [address] Health Maintenance Due Date Last Done Comments Pneumococcal Vaccine 50+ (1 of 2 - PCV) 1981 TDAP/TD VACCINES (1 - Tdap) 1981 COLOGUARD 2007 COLON CANCER SCREENING 5 YEA R SIGMOIDOSCOPY 2007 COLONOSCOPY 2007 [address]AL CANCER SCREENING 2007 CT COLONOGRAPHY 2007 FECAL OCCULT BLOOD TEST 2007 FIT Testing (1 year) 2007 LUNG CANCER SCREENING 2012 ZOSTER VACCINE (1 of 2) 2012 ANNUAL WELLNESS VISIT 08/31/2022 COVID-19 Vaccine ( - season) 2024 INFLUENZA VACCINE 04/22/2025 HEPATITIS C SCREENING Completed 03/06/2015, 015 Procedures Procedure Name Priority Date/Time Associated Diagnosis Comments SCANNED - PULMONARY RESULTS 02/25/2025 SCANNED - LABS 12/22/2024 HEPATITIS PANEL, ACUTE Routine 03/06/2015 7:56 AM EDT from Last 3 Months or Most Recently Relevant to Health Maintenance Results * Pulmonary Results Scan (02/25/2025) us Kim Daigle MD PFT ORDERABLES Final Result * LABS SCANNED (12/22/2024) us Kim Daigle MD LAB BLOOD ORDERABLES Final R esult * Hepatitis panel, acute (03/06/2015 7:56 AM EDT) Hepatitis B Surface Ag NonReactive NONREACTIVE [facility] Comment: DF by IF @ 03/06/2015 09:34 TEST INFORMATION: Hepatitis B Surface Antigen The intended use of this Hepatitis B Surface Antigen assay is for clinical diagnosis only. Hep A IgM NonReactive NONREACTIVE [facility] Hep B Core IgM NonReactive NONREACTIVE [facility] Comment: DF by IF @ 03/06/2015 09:34 TEST INFORMATION: Hepatitis B Core Antibody, IgM The intended use of this Hepatitis B Core Antibody, IgM assay is for clinical diagnosis only. Hep C Virus Ab NonReactive NONREACTIVE [facility] Comment: DF by IF @ 03/06/2015 09:34 The signal to cutoff ratio (S/C) for the Hepatitis C antibodies is: Greater Than or Equal to 11.0 TEST INFORMATION: Hepatitis C Virus Antibody This test is performed using chemiluminescent immunoassay (BRAYDON). Anti-HCV Signal Cutoff (S/C) Ratios (BRAYDON): Less than 0.8 ................. NonReactive 0.80 to 1.00 .................. Equivocal Greater than 1.00 ............. Reactive This assay is intended for clinical diagnosis only. Blood specimen (specimen) 03/06/2015 7:56 AM EDT Narrative [facility] - 03/06/2015 9:34 AM EDT Specimen Type: Blood Michael Figueroa MD LAB BLOOD ORDERABLES Emelina esteves Result [facility] [address] [id number], from Last 3 Months or Most Recently Relevant to Health Maintenance Insurance [employer] MEDICARE ADVANTAGE PPO Care Teams Chucking Lathe Operator Relationship Specialty Start Date End Date Alvarez Rae MD [address] [place] [address] PCP - General Family Medicine 03/19/23
== END 2025-03-02 23:59 | disposition home or self-care (01) ==
LOC: LAB.DROPOF 03-03 14:37
PROVIDERS: PCP Family Medicine; Visit Provider Family Medicine
DX: Z51.81 Encounter for therapeutic drug level monitoring (principal); Z79.01 Long term (current) use of anticoagulants
CPT/HCPCS: 85610

== ENCOUNTER 2025-03-30 13:52 | Outpatient (CLI) | payer OTHER, SELFPAY ==
--- OUTSIDE RECORDS SUMMARY | 2025-02-25 13:30 | XMS_ITS | Encounter Summary ---
Author Organization [facility] Address [address] [place] [address] Care Team Providers Care Service Inspector Name Role Phone Alvarez Rae MD Primary Care Provider +1- [phone] Encounter Details Date Type Department Care Team (Latest Contact Info) Description 02/25/2025 1:30 PM EDT Clinical Support No Requirements [facility] [address] [place] [address] ICD (implantable cardioverter-defibr illator), dual, in situ [Z95.810] (Primary Dx) Social History Tobacco Use Types Packs/Day Years Used Date Smoking Tobacco: Every Day Cigarettes 1 40.7 Started: 1984 Passive Smoke Exposure: Never Smokeless Tobacco: Never Comments:6-7 cigarettes abel y Alcohol Use Standard Drinks/Week Comments No 0 (1 standard drink = 0.6 oz pur e alcohol) Sex and Gender Information Value Date Recorded Sex Assigned at Not on file Legal Sex Male 1:54 PM EDT Gender Identity Not on file Sexual Orientation Not on file documented as of this encounter Plan of Treatment Upcoming Encounters Date Type Department Care Team (Late st Contact Info) Description 08/31/2025 10:30 AM EST Ancillary Procedure [facility] [address] [place] [address] 08/31/2025 11:30 AM EST Office Visit [facility] [address] [place] [address] Caron Maldonado APRN [address] [place] [address] 09/14/2025 10:30 AM EST Office Visit [facility] [place] [address] Kim Daigle MD [address] [place] [address] 09/14/2025 10:30 AM EST Clinical Support No Requirements [facility] [address] [place] [address] [place] [address] documented as of this encounter Visit Diagnoses Diagnosis ICD (implantable cardioverter-defibrillator), dual, in situ [Z95.810]- Primary documented in this encounter Care Teams Service Inspector Relationship Specialty Start Date End Date Alvarez Rae MD [address] [place] [address] PCP - General Family Medicine 03/19/23 documented as of this encounter
--- OUTSIDE RECORDS SUMMARY | 2025-02-25 13:45 | XMS_ITS | Encounter Summary ---
Author Organization [facility] Address [address] [place] [address] Care Team Providers Care Back Hoe Operator Name Role Phone Alvarez Rae MD Primary Care Provider +1- [phone] Reason for Referral * Diagnostic Imaging (Routine) - Pending Review Specialty Diagnoses / Procedures Referred By Contac t Referred To Contact Diagnoses H/O mechanical aortic valve replacement Procedures Adult Transthoracic Echo Complete W/ Cont if Necessary Per Protocol [place] [address] Phone: tel: fax: [address] [place] [address] Phone: tel: fax: Referral ID Status Reason Start Date Expiration Date V isits Requested Visits Authorized Pending Review 02/25/2025 05/27/2026 1 1 Reason for Visit * Reason Comments Pacemaker Check Nonischemic cardiomyopathy Pt states he is here today for follow up nonischemic cardiomyopathy. No chest pain, SOA, palpitations or dizziness. Sleep Apnea Pt states he is here today for follow up MATTY. He states he is doing well on current therapy. DL is in [facility]. Encounter Details Date Type Department Care Team ([facility] Contact Info) Description 02/25/2025 1:45 PM EDT Office Visit [facility] [address] [place] [address] Kim Daigle MD [address] [place] [address] H/O mechanical aortic valve replacement (Primary Dx); ICD (implantable cardioverter-defibril lator), dual, in situ [Z95.810]; MATTY treated with BiPAP Social History Tobacco Use Types Packs/Day Years Used Date Smoking Tobacco: Every Day Cigarettes 1 40.7 Started: 1984 Passive Smoke Exposure: Never Smokeless Tobacco: Never Tobacco Cessation:Ready to Q uit: No; Counseling Given: Yes Comments:6-7 cigarettes daily Alcohol Use Standard Drinks/Week Comments No 0 (1 standard drink = 0.6 oz pur e alcohol) Sex and Gender Information Value Date Recorded Sex Assigned at Not on file Legal Sex Male 1:54 PM EDT Gender Identity Not on file Sexual Orientation Not on file documented as of this encounter Last Filed Vital Signs Vital Sign Reading Time Taken Comments Blood Pressure 110/70 02/25/2025 1:39 PM EDT Pulse 83 02/25/2025 1:39 PM EDT Temperature - - Respiratory Rate - - Oxygen Saturation 96% 02/25/2025 1:39 PM EDT Inhaled Oxygen Concentration - - Weight 93.9 kg (207 lb) 02/25/2025 1:39 PM EDT Height 170.2 cm (5' 7 ) 02/25/2025 1:39 PM EDT Body Mass Index 32.42 02/25/2025 1:39 PM EDT documented in this encounter Progress Notes * Kim Daigle MD - 02/25/2025 1:45 PM EDT Images from the original note were not included. [facility] Provider Note Date: 02/25/2025 Name: Nir Pineda : 1960 PCP: Alvarez Rae MD Chief Complaint Patient presents with Pacemaker Check Nonischemic cardiomyopathy Pt states he is here today for follow up nonischemic cardiomyopathy. No chest pain, SOA, palpitations or dizziness. Sleep Apnea Pt states he is here today for follow up MATTY. He states he is doing well on current therapy. DL is in [facility]. Subjective History of Present Illness Nir Pineda is a 64 y.o. male with niCMP, AVR, ICD who presents today for follow up. Still having beeping from alarms for battery wanring. No change in ICD parameters States that feels good. Denies chest pain or palpitations Denies shortness of breath. Denies swelling Denies lightheadedness or syncope. 02/25/2025 Updated Cardiac history 1. CAD, [id number] per [facility] in 2014 2. Cardiomyopathy 3. Hypertension 4. Mechanical aortic valve replacement 2015 5. MATTY with baseline AHI of [address] 6. [employer] Echocardiogram 03/19/2023 ?? Left ventricular systolic function is moderately decreased. Left ventricular ejection fraction appears to be 36 - 40%. ?? Left ventricular wall thickness is consistent with borderline concentric hypertrophy. ?? Left ventricular diastolic function is consistent with (grade I) impaired relaxation. ?? There is a mechanical aortic valve prosthesis present. Estimated right ventricular systolic pressure from tricuspid regurgitation is normal (<35 mmHg). ?? Mild dilation of the aortic root is present. Mild dilation of the proximal aorta is present. Mild dilation of the ascending aorta is present. Allergies Allergen Reactions Lisinopril Cough Atorvastatin Myalgia Current Outpatient Medications: carvedilol (COREG) 12.5 MG tablet, TAKE 1 TABLET BY MOUTH 2 (TWO) TIMES A DAY WITH MEALS., Disp: 180 tablet, Rfl: 1 furosemide (LASIX) 40 MG tablet, Take 1 tablet by mouth Daily., Disp: 90 tablet, Rfl: 3 lisinopril (PRINIVIL,ZESTRIL) 20 MG tablet, , Disp: , Rfl: meloxicam (MOBIC) 7.5 MG tablet, , Disp: , Rfl: tamsulosin (FLOMAX) 0.4 MG capsule 24 hr capsule, Take 1 capsule by mouth Daily., Disp: , Rfl: Tradjenta 5 MG tablet tablet, , Disp: , Rfl: venlafaxine (EFFEXOR) 75 MG tablet, 1 TABLET BY MOUTH TWICE A DAY, Disp: 180 tablet, Rfl: 3 warfarin (COUMADIN) 10 MG tablet, Take 1 tablet by mouth Daily., Disp: 90 tablet, Rfl: 3 Past Medical History: Diagnosis Date CAD (coronary artery disease) 05/04/2016 Cardiomyopathy Childhood asthma GERD (gastroesophageal reflux disease) 05/04/2016 Hypertension 05/04/2016 Nephrolithiasis status post extraction. Nonischemic cardiomyopathy 05/04/2016 Nonrheumatic aortic (valve) insufficiency Nonrheumatic aortic (valve) stenosis MATTY (obstructive sleep apnea) BASELINE AHI 29; ON BIPAP ST Primary central sleep apnea VHD (valvular heart disease) 05/04/2016 Past Surgical History: Procedure Laterality Date AORTIC VALVE REPAIR/REPLACEMENT 03/10/2015 [facility]. AORTIC VALVE REPAIR/REPLACEMENT MECANCIAL CARDIAC DEFIBRILLATOR PLACEMENT 06/30/2015 Status post single-chamber ICD implantation for primary prevention, Dr. Fabio Fernandes, 06/30/2015: [employer] D140. CHOLECYSTECTOMY 02/2015 Due to acute cholecystitis KIDNEY STONE SURGERY TONSILLECTOMY Family History Problem Relation Age of Onset Crohn's disease Mother Other Father Aortic valve replaced Hypertension Father Heart failure Father Arrhythmia Father Coronary artery disease Father Diabetes Father Heart attack Sister Heart attack Brother Social History Socioeconomic History Marital status: Number of children: 2 Tobacco Use Smoking status: Every Day Current packs/day: 1.00 Average packs/day: 1 pack/day for 40.6 years (40.6 ttl pk-yrs) Types: Cigarettes Start date: 1984 Passive exposure: Never Smokeless tobacco: Never Tobacco comments: 6-7 cigarettes daily Vaping Use Vaping status: Never Used Substance and Sexual Activity Alcohol use: No Drug use: No Sexual activity: Defer Objective Vital Signs: BP 110/70 (BP Location: Right arm, Patient Position: Sitting, Cuff Size: Adult) Pulse 83 Ht 170.2 cm (67 ) Wt 93.9 kg (207 lb) SpO2 96% BMI 32.42 kg/m?? Estimated body mass index is 32.42 kg/m?? as calculated from the following: Height as of this encounter: 170.2 cm (67 ). Weight as of this encounter: 93.9 kg (207 lb). Physical Exam Constitutional: Appearance: Normal appearance. He is well-developed. HENT: Head: Normocephalic and atraumatic. Eyes: General: No scleral icterus. Pupils: Pupils are equal, round, and reactive to light. Cardiovascular: Rate and Rhythm: Normal rate and regular rhythm. Heart sounds: Normal heart sounds. No murmur heard. Comments: Mechanical click Pulmonary: Breath sounds: Normal breath sounds. No wheezing or rhonchi. Musculoskeletal: Right lower leg: No edema. Left lower leg: No edema. Skin: Capillary Refill: Capillary refill takes less than 2 seconds. Coloration: Skin is not cyanotic. Nails: There is no clubbing. Neurological: Mental Status: He is alert and oriented to person, place, and time. Motor: No weakness. Gait: Gait normal. Psychiatric: Mood and Affect: Mood normal. Behavior: Behavior is cooperative. Thought Content: Thought content normal. Cognition and Memory: Memory normal. Assessment and Plan ASSESSMENTS AND ORDERS Diagnoses and all orders for this visit: 1. H/O mechanical aortic valve replacement (Primary) - Adult Transthoracic Echo Complete W/ Cont if Necessary Per Protocol; Future 2. ICD (implantable cardioverter-defibrillator), dual, in situ [Z95.810] 3. MATTY treated with BiPAP PLAN -alert on ICD today discussed, cannot guarantee past 90days -since this primary prevention device he does not want to do generator change at this time, will continue to monitor. -now has a home monitor -ICD was primary prevention and EF and has recovered so device need is less than previously -euvolemic on exam continue CHF meds. -echo update at next OV -Bipap DL reviewed, AHI 13 from 6 last time, recommended new mask Follow Up Return in about 6 months (around 08/28/2025) for PM/ICD check, with testing at that appointment. Micah Daigle MD Cardiology and Sleep [facility] 02/25/2025 Please note that this explicitly excludes time spent on other separate billable services such as performing procedures or test interpretation, when applicable. This note was created using dictation software which occasionally transcribes nonsensical phrases. Please contact the provider if any clarification is needed. documented in this encounter Plan of Treatment Upcoming Encounters Date Type Department Care Team (Late st Contact Info) Description 08/31/2025 10:30 AM EST Ancillary Procedure [facility] [address] [place] [address] 08/31/2025 11:30 AM EST Office Visit [facility] [address] [place] [address] [place] [address] Caron Maldonado APRN [address] [place] [address] [place] [address] 09/14/2025 10:30 AM EST Office Visit [facility] [address] [place] [address] [place] [address] Kim Daigle MD [address] [place] [address] 09/14/2025 10:30 AM EST Clinical Support No Requirements [facility] [address] [place] [address] [place] [address] Scheduled Orders Name Type Priority Associated Diagnoses Orde r Schedule Adult Transthoracic Echo Complete W/ Cont if Necessary Per Protocol Echocardiography Routine H/O mechanical aortic valve replacement Expected: 08/24/2025, Expires: 02/25/2026 documented as of this encounter Visit Diagnoses Diagnosis H/O mechanical aortic valve replacement- Primary ICD (implantable cardioverter-defibrillator), dual, in situ [Z95.810] MATTY treated with BiPAP documented in this encounter Care Teams Back Hoe Operator Relationship Specialty Start Date End Date Alvarez Rae MD [address] [place] [address] PCP - General Family Medicine 03/19/23 documented as of this encounter
[2025-03-30 20:04] LABS: INR 1.55 (0.9-1.1); Prothrombin Time 16.7 seconds (10.1-12.5)
--- OUTSIDE RECORDS SUMMARY | 2025-03-31 12:31 | XMS_ITS | Encounter Summary ---
[facility] Address [address] [place] [address] Care Team Providers Care Data Capture Clerk Name Role Phone Alvarez Rae MD Primary Care Provider +1- [phone] Encounter Details Date Type Department Care Team [...] Description 08/31/2025 10:30 AM EST Ancillary Procedure [facility] [address] [address] 08/31/2025 11:30 AM EST Office Visit [facility] [address] [address] Caron Maldonado, ESTHER [address] [place] [address] 09/14/2025 10:30 AM EST Office Visit [facility] [address] [place] [address] Kim Daigle MD [address] [place] [address] 09/14/2025 10:30 AM EST Clinical Support No Requirements [facility] [address] [address] documented as of this encounter Visit Diagnoses Not on filedocumented in this encounter Care Teams Data Capture Clerk Relationship Specialty Start Date End Date Alvarez Rae MD [address] [place] [address] PCP - General Family Medicine 03/19/23 documented as of this encounter
--- OUTSIDE RECORDS SUMMARY | 2025-03-31 12:31 | XMS_ITS | Encounter Summary ---
[facility] Address [address] [place] [address] Care Team Providers Care Photograph Developer Name Role Phone Alvarez Rae MD Primary Care Provider +1- [phone] Reason for Visit * Reason Comments Med Refill Encounter Details Date Type Department Care Team ([facility] Contact Info) Description 03/16/2025 Refill [facility] [address] [place] [address] Cyndy Saldana APRN [address] [place] [address] Med Refill Social History Tobacco Use [...] Upcoming Encounters Date Type Department Care Team ([facility] Contact Info) Description 08/31/2025 10:30 AM EST Ancillary Procedure [facility] [address] [place] [address] 08/31/2025 11:30 AM EST Office Visit [facility] [address] [place] [address] Caron Maldonado APRN [address] [facility] [place] [address] 09/14/2025 10:30 AM EST Office Visit [facility] [address] [place] [address] [place] [address] Kim Daigle MD [address] [facility] [place] [place] [address] 09/14/2025 10:30 AM EST Clinical Support No Requirements [facility] [address] [place] [address] [place] [address] documented as of this encounter Visit Diagnoses Not on filedocumented in this encounter Care Teams Photograph Developer Relationship Specialty Start Date End Date Alvarez Rae MD [address] [place] [address] PCP - General Family Medicine 03/19/23 documented as of this encounter
--- OUTSIDE RECORDS SUMMARY | 2025-03-31 12:31 | XMS_ITS | Encounter Summary ---
Author Organization [facility] Address [address] [place] [address] Care Team Providers Care Therapeutic Recreation Leader Name Role Phone Alvarez Rae MD Primary Care Provider +1- [phone] Reason for Visit * Reason Comments Med Refill Encounter Details Date Type Department Care Team (Late st Contact Info) Description 10/06/2023 Refill [facility] [address] [place] [address] Kim Daigle MD [address] [place] [address] Med Refill Social History Tobacco Use [...] Description 08/31/2025 10:30 AM EST Ancillary Procedure [facility] [address] [place] [address] [place] [address] 08/31/2025 11:30 AM EST Office Visit [facility] [address] [place] [address] [place] [address] Caron Maldonado APRN [address] [place] [address] [place] [address] 09/14/2025 10:30 AM EST Office Visit [facility] [address] [place] [address] [place] [address] Kim Daigle MD [address] [place] [address] [place] [address] 09/14/2025 10:30 AM EST Clinical Support No Requirements [facility] [address] [place] [address] [place] [address] documented as of this encounter Visit Diagnoses Not on filedocumented in this encounter Care Teams Therapeutic Recreation Leader Relationship Specialty Start Date End Date Alvarez Rae MD [address] [place] [address] PCP - General Family Medicine 03/19/23 documented as of this encounter
--- OUTSIDE RECORDS SUMMARY | 2025-03-31 12:31 | XMS_ITS | Clinical Summary ---
Author Organization [facility] Address [address] [place] [address] Care Team Providers Care Commercial Driver Name Role Phone Alvarez Rae MD Primary Care Provider +1- [phone] Allergies Active Allergy Reactions Criticality Noted Date [...] DAY 180 tablet 3 3 Active lisinopril (PRINIVIL,ZEST RIL) 20 MG tablet 3 Active tamsulosin (FLOMAX) 0.4 MG capsule 24 hr capsule Take 1 capsule by mouth Daily. 5 Active Tradjenta 5 MG tablet tablet 5 Active meloxicam (MOBIC) 7.5 MG tablet 5 Active carvedilol (COREG) 12.5 MG tablet TAKE 1 TABLET BY MOUTH 2 (TWO) TIMES A DAY WITH MEALS. 180 tablet 5 Active carvedilol (COREG) 12.5 MG tablet TAKE 1 TABLET BY MOUTH 2 (TWO) TIMES A DAY WITH MEALS. 180 tablet 1 5 03/16/20 25 Discontinued Active Problems Problem Noted Date Diagnosed Date [...] warning about possible battery life being inaccurate. [employer] is going to come out today and check the downloaded information on the robot programmer and [employer] services. Assessment & Plan (03/17/2024 11:00 AM [...] for primary prevention, Dr. Fabio Fernandes, 06/30/2015: [employer] D140. d. DEVICE INTERROGATION: 11/08/2015; Patient [...] Encounters Date Type Department Care Team Description 03/16/2025 Refill [facility] [address] [address] Cyndy Saldana APRN Med Refill 02/25/2025 1:45 PM EDT Office Visit [facility] [address] [place] [address] Kim Daigle MD H/O mechanical aortic valve replacement (Primary Dx); ICD (implantable cardioverter-defibr illator), dual, in situ [Z95.810]; MATTY treated with BiPAP 02/25/2025 1:30 PM EDT Clinical Support No Requirements [facility] [address] [place] [address] ICD (implantable cardioverter-defibr illator), dual, in situ [Z95.810] (Primary Dx) 02/25/2025 Travel from Last 3 Months Family [...] Ancillary Procedure [facility] [address] [place] [address] 08/31/2025 11:30 AM EST Office Visit [facility] [address] [place] [address] Caron Maldonado, ESTHER [address] [place] [address] 09/14/2025 10:30 AM EST Office Visit [facility] [address] [address] [address] Kim Daigle MD [address] [place] [address] [place] [address] 09/14/2025 10:30 AM EST Clinical Support No Requirements [facility] [address] [place] [address] Health Maintenance Due Date Last Done [...] ANNUAL WELLNESS VISIT 08/31/2022 COVID-19 Vaccine ( season) 2025 INFLUENZA VACCINE 04/22/2025 HEPATITIS C SCREENING Completed 03/06/2015, 015 Procedures Procedure Name Priority Date/Time Associated Diagnosis Comments REMOTE DEVICE CHECK 03/24/2025 3 :41 AM EDT SCANNED - PULMONARY RESULTS 02/25/2025 HEPATITIS PANEL, ACUTE Routine 03/06/2015 7:56 AM EDT from Last 3 Months or Most Recently Relevant to Health Maintenance Results * Pulmonary Results Scan (02/25/2025) Kim Daigle MD PFT ORDERABLES Final Result * Hepatitis panel, acute (03/06/2015 7:56 AM EDT) Hepatitis B Surface Ag NonReactive NONREACTIVE [facility] Comment: DF by IF @ 03/06/2015 09:34 TEST INFORMATION: Hepatitis B Surface Antigen The intended use of this Hepatitis B Surface Antigen assay is for clinical diagnosis only. Hep A IgM NonReactive NONREACTIVE [facility] Hep B Core IgM NonReactive NONREACTIVE [facility] Comment: DF by IF @ 03/06/2015 09:34 TEST INFORMATION: Hepatitis B Core Antibody, IgM The intended use of this Hepatitis B Core Antibody, IgM assay is for clinical diagnosis only. Hep C Virus Ab NonReactive NONREACTIVE [facility] Comment: DF by IF @ 03/06/2015 [...] specimen (specimen) 03/06/2015 7:56 AM EDT Narrative [facility] - 03/06/2015 9:34 AM EDT Specimen Type: Blood Michael Figueroa MD LAB BLOOD ORDERABLES Emelina esteves Result [facility] [address] [place] [address], from Last 3 Months or Most Recently Relevant to Health Maintenance Insurance [employer] PPO Care Teams Commercial Driver Relationship Specialty Start Date End Date Alvarez Rae MD [address] [place] [address] PCP - General Family Medicine 03/19/23
--- OUTSIDE RECORDS SUMMARY | 2025-03-31 12:31 | XMS_ITS | Encounter Summary ---
[facility] Address [address] [place] [address] Care Team Providers Care Publication Designer Name Role Phone Alvarez Rae MD Primary Care Provider +1- [phone] Reason for Visit * Reason Comments Med Refill Encounter Details Date Type Department Care Team ([facility] Contact Info) Description 09/13/2023 Refill [facility] [address] [address] Kim Daigle MD [address] [place] [address] Med Refill Social History Tobacco Use [...] Upcoming Encounters Date Type Department Care Team ([facility] Contact Info) Description 08/31/2025 10:30 AM EST Ancillary Procedure [facility] [address] [address] [address] 08/31/2025 11:30 AM EST Office Visit [facility] [address] [address] Caron Maldonado APRN [address] [place] [address] 09/14/2025 10:30 AM EST Office Visit [facility] [address] [place] [address] Kim Daigle MD [address] [place] [address] 09/14/2025 10:30 AM EST Clinical Support No Requirements [facility] [address] [place] [address] documented as of this encounter Visit Diagnoses Not on filedocumented in this encounter Care Teams Publication Designer Relationship Specialty Start Date End Date Alvarez Rae MD [address] [place] [address] PCP - General Family Medicine 03/19/23 documented as of this encounter
== END 2025-03-30 23:59 | disposition home or self-care (01) ==
LOC: LAB.DROPOF 03-31 12:29
PROVIDERS: PCP Family Medicine; Visit Provider Family Medicine
DX: E11.9 Type 2 diabetes mellitus without complications (principal); Z79.01 Long term (current) use of anticoagulants
CPT/HCPCS: 85610

== ENCOUNTER 2025-05-26 13:45 | Outpatient (CLI) | payer OTHER, SELFPAY ==
[2025-05-26 17:25] LABS: INR 2.01 (0.9-1.1); Prothrombin Time 21.2 seconds (10.1-12.5)
== END 2025-05-26 23:59 | disposition home or self-care (01) ==
LOC: LAB.DROPOF 05-27 21:05
PROVIDERS: PCP Family Medicine; Visit Provider Family Medicine
DX: Z79.01 Long term (current) use of anticoagulants (principal)
CPT/HCPCS: 85610

== ENCOUNTER 2025-06-10 10:18 | Outpatient (CLI) | payer OTHER, SELFPAY ==
--- OUTSIDE RECORDS SUMMARY | 2025-06-11 12:12 | XMS_ITS | Encounter Summary ---
Author [facility] Address [address] [place] [address] Care Team Providers Care Master Automotive Technician Name Role Phone Alvarez Rae MD Primary Care Provider +1- [phone] Reason for Visit * Reason Comments Med Refill Encounter Details Date Type Department Care Team ([facility] Contact Info) Description 09/13/2023 Refill [facility] [address] [address] Kim Daigle MD [address] [place] [address] Med Refill Social History Tobacco [...] Encounters Date Type Department Care Team ([facility] Contact Info) Description 08/31/2025 10:30 AM EST Ancillary Procedure [facility] [address] [address] 08/31/2025 11:30 AM EST Office Visit [facility] [address] [address] Caron Maldonado APRN [address] [place] [address] 09/14/2025 10:30 AM EST Office Visit [facility] [address] [place] [address] Kim Daigle MD [address] [place] [address] 09/14/2025 10:30 AM EST Clinical Support No Requirements [facility] [address] [place] [address] documented as of this encounter Visit Diagnoses Not on filedocumented in this encounter Care Teams Master Automotive Technician Relationship Specialty Start Date End Date Alvarez Rae MD [address] [place] [address] PCP - General Family Medicine 03/19/23 documented as of this encounter
--- OUTSIDE RECORDS SUMMARY | 2025-06-11 12:13 | XMS_ITS | Encounter Summary ---
Author Organization [facility] Address [address] [place] [address] Care Team Providers Care Microbiology Technician Name Role Phone Alvarez Rae MD Primary Care Provider +1- [phone] Reason for Visit * Reason Comments Med Refill Encounter Details Date Type Department Care Team (Late st Contact Info) Description 10/06/2023 Refill [facility] [address] [place] [address] Kim Daigle MD [address] [place] [address] Med Refill Social History Tobacco Use [...] Description 08/31/2025 10:30 AM EST Ancillary Procedure [facility] [address] [place] [address] [place] [address] 08/31/2025 11:30 AM EST Office Visit [facility] [address] [place] [address] [place] [address] Caron Maldonado APRN [address] [place] [address] [place] [address] 09/14/2025 10:30 AM EST Office Visit [facility] [address] [place] [address] [place] [address] Kim Daigle MD [address] [place] [address] [place] [address] 09/14/2025 10:30 AM EST Clinical Support No Requirements [facility] [address] [place] [address] [place] [address] documented as of this encounter Visit Diagnoses Not on filedocumented in this encounter Care Teams Microbiology Technician Relationship Specialty Start Date End Date Alvarez Rae MD [address] [place] [address] PCP - General Family Medicine 03/19/23 documented as of this encounter
--- OUTSIDE RECORDS SUMMARY | 2025-06-11 12:13 | XMS_ITS | Clinical Summary ---
Author Organization [facility] Address [address] [place] [address] Care Team Providers Care Early Childhood Lead Teacher Name Role Phone Alvarez Rae MD Primary Care Provider +1- [phone] Allergies Active Allergy Reactions Criticality Noted Date Comments Atorvastatin Myalgia Low 05/04/2016 Lisinopril Cough 05/04/2016 Medications furosemide (LASIX) 40 MG tablet Take 1 tablet by mouth Daily. 90 tablet 3 09/18/2022 Active warfarin (COUMADIN) 10 MG tablet Take 1 tablet by mouth Daily. 90 tablet 3 09/18/2022 Active venlafaxine (EFFEXOR) 75 MG tablet 1 TABLET BY MOUTH TWICE A DAY 180 tablet 3 09/26/2022 Active lisinopril (PRINIVIL,ZESTR IL) 20 MG tablet 02/26/2023 Active tamsulosin (FLOMAX) 0.4 MG capsule 24 hr capsule Take 1 capsule by mouth Daily. 09/09/2024 Active Tradjenta 5 MG tablet tablet 02/18/2025 Activ e meloxicam (MOBIC) 7.5 MG tablet 01/28/2025 Active carvedilol (COREG) 12.5 MG tablet TAKE 1 TABLET BY MOUTH 2 (TWO) TIMES A DAY WITH MEALS. 180 tablet 03/16/2025 Active Active Problems Problem Noted Date Diagnosed Date [...] settings H/O mechanical aortic valve replacement 09/18/19 Assessment & Plan (09/15/2024 6:02 PM EST): [...] warning about possible battery life being inaccurate. [employer] is going to come out today and check the downloaded information on the cnc programmer and [employer] services. Assessment & Plan (03/17/2024 11:00 AM [...] for primary prevention, Dr. Fabio Fernandes, 06/30/2015: [employer] D140. d. DEVICE INTERROGATION: 11/08/2015; Patient [facility] [address] [place] [id number] Cyndy Saldana APRN Med Refill from Last 3 Months Family History Medical [...] Date Smoking Tobacco: Every Day Cigarettes 1 40.9 Started: 1982 Passive Smoke Exposure: Never Smokeless [...] Ancillary Procedure [facility] [address] [place] [address] [place] [address] 08/31/2025 11:30 AM EST Office Visit [facility] [address] [place] [address] [place] [address] Caron Maldonado APRN [address] [facility] [place], [place] [id number] 09/14/2025 10:30 AM EST Office Visit [facility] [address] [place] [address] [place] [address] Kim Daigle MD [address] [place] [address] 09/14/2025 10:30 AM EST Clinical Support No Requirements [facility] [address] [place] [address] [place] [address] Health Maintenance Due Date [...] of 2) 2012 ANNUAL WELLNESS VISIT 08/31/2022 INFLUENZA VACCINE 02/20/2025 HEPATITIS C SCREENING Completed 03/06/2015, 015 Procedures Procedure Name Priority Date/Time Associated Diagnosis Comments REMOTE DEVICE CHECK 03/24/2025 3 :41 AM EDT HEPATITIS PANEL, ACUTE Routine 03/06/2015 7:56 AM EDT from Last 3 Months or Most Recently Relevant to Health Maintenance Results * Remote Device Check (03/24/2025 3:41 AM EDT) Date Time Interrogation Session [id number] [facility] Type Interrogation Session Remote Scheduled [facility] Implantable Pulse Generator Silver Designer [employer] [facility] Implantable Pulse Generator Type ICD [facility] Implantable Pulse Generator Model [id number] [facility] Implantable Pulse Generator Serial Number [id number] [facility] Implantable Pulse Generator Implant Date [id number] [facility] Battery Remaining Percentage 83.00 % [facility] Battery Remaining Longevity 90.0 mo [facility] Battery Status Beginning of Service [facility] Capacitor Charge Time 12.900 [facility] Andres Statistic RV Percent Paced 0.00 [facility] Lead Channel RV Sensing Intrinsic Amplitude 12.300 [facility] Lead Channel Setting RV Sensing Sensitivity 0.60 [facility] Lead Channel RV Impedance Value 497 [facility] Lead Channel Setting RV Pacing Amplitude 2.000 [facility] Lead Channel Setting RV Pacing Pulse Width 0.4 [facility] Andres Setting Mode (NBG Code) VVI [facility] Andres Setting Lower Rate Limit 40 [facility] Therapy Statistic Recent Shocks Delivered 0 [facility] Therapy Statistic Recent Shocks Aborted 0 [facility] Therapy Statistic Recent ATP Delivered 0 [facility] SHOCK MEASURED IMPEDANCE 77 [facility] Lead Channel Setting RV Sensing Polarity Bipolar [facility] Lead Channel Setting RV Pacing Polarity Bipolar [facility] Lead Channel RV Pacing Threshold Polarity Bipolar [facility] Zone Setting Type Category VF [facility] IDC RATE 1 220 [facility] THERAPIES Burst,26J,41J,41J x 6 [facility] Zone Setting Status On [facility] Zone ID 1 [facility] Zone Setting Type Category VT [facility] IDC RATE 1 180 [facility] Zone Setting Status Monitor [facility] Zone ID 2 [facility] 03/24/2025 3:41 AM EDT us Kim Daigle MD CV IMPLANTABLE CARDIAC DEVIC E Final Result [facility] * Hepatitis panel, acute (03/06/2015 7:56 AM EDT) Hepatitis B Surface Ag NonReactive NONREACTIVE [facility] Comment: DF by IF @ 03/06/2015 09:34 TEST INFORMATION: Hepatitis B Surface Antigen The intended use of this Hepatitis B Surface Antigen assay is for clinical diagnosis only. Hep A IgM NonReactive NONREACTIVE [facility] Hep B Core IgM NonReactive NONREACTIVE [facility] Comment: DF by IF @ [...] specimen (specimen) 03/06/2015 7:56 AM EDT Narrative [facility] - 03/06/2015 9:34 AM EDT Specimen Type: Blood us Michael Figueroa MD LAB BLOOD ORDERABLES Emelina l Result [facility] [address] [place] [address], from Last 3 Months or Most Recently Relevant to Health Maintenance Insurance [employer] MEDICARE ADVANTAGE PPO Care Teams Early Childhood Lead Teacher Relationship Specialty Start Date End Date Alvarez Rae MD [address] [place] [address] PCP - General Family Medicine 03/19/23
== END 2025-06-10 23:59 | disposition home or self-care (01) ==
LOC: LAB.DROPOF 06-11 10:55
PROVIDERS: PCP Family Medicine; Visit Provider Family Medicine
DX: E11.9 Type 2 diabetes mellitus without complications (principal)
CPT/HCPCS: 82043; 82570

== ENCOUNTER 2025-07-06 08:40 | Outpatient (CLI) | payer OTHER, SELFPAY ==
[2025-07-06 18:30] LABS: INR 2.31 (0.9-1.1); Prothrombin Time 24.1 seconds (10.1-12.5)
--- OUTSIDE RECORDS SUMMARY | 2025-07-08 08:53 | XMS_ITS | Encounter Summary ---
Author Organization [facility] Address [address] [place] [address] Care Team Providers Care Methodologist Name Role Phone Alvarez Rae MD Primary Care Provider +1- [phone] Reason for Visit * Reason Comments Med Refill Encounter Details Date Type Department Care Team ([facility] Contact Info) Description 06/19/2025 Refill [facility] [address] [place] [id number] Kim Daigle MD [address] [place] [address] Med Refill Social History Tobacco Use Types Packs/Day Years Used Date Smoking Tobacco: Every Day Cigarettes 1 41 Started: 1982 Passive Smoke Exposure: Never Smokeless [...] Encounters Date Type Department Care Team ([facility] Contact Info) Description 08/31/2025 10:30 AM EST Ancillary Procedure [facility] [address] [place] [address] 08/31/2025 11:30 AM EST Office Visit [facility] [place] [address] Caron Maldonado APRN [address] [place] [address] 09/14/2025 10:30 AM EST Office Visit [facility] [address] [place] [address] [place] [address] Kim Daigle MD [address] [facility] [place] [address] 09/14/2025 10:30 AM EST Clinical Support No Requirements [facility] [address] [place] [address] [place] [address] documented as of this encounter Visit Diagnoses Not on filedocumented in this encounter Care Teams Methodologist Relationship Specialty Start Date End Date Alvarez Rae MD [address] [place] [address] PCP - General Family Medicine 03/19/23 documented as of this encounter
--- OUTSIDE RECORDS SUMMARY | 2025-07-08 08:53 | XMS_ITS | Encounter Summary ---
Author Organization [facility] Address [address] [place] [address] Care Team Providers Care Network Security Architect Name Role Phone Alvarez Rae MD Primary Care Provider +1- [phone] Reason for Visit * Reason Comments Med Refill Encounter Details Date Type Department Care Team ([facility] Contact Info) Description 09/13/2023 Refill [facility] [address] [place] [address] Kim Daigle MD [address] [place] [address] Med Refill Social History Tobacco [...] Upcoming Encounters Date Type Department Care Team ([facility] Contact Info) Description 08/31/2025 10:30 AM EST Ancillary Procedure [facility] [address] [place] [address] 08/31/2025 11:30 AM EST Office Visit [facility] [address] [place] [address] Caron Malodnado APRN [address] [place] [address] 09/14/2025 10:30 AM EST Office Visit [facility] [address] [place] [address] Kim Daigle MD [address] [place] [address] 09/14/2025 10:30 AM EST Clinical Support No Requirements [facility] [address] [place] [address] documented as of this encounter Visit Diagnoses Not on filedocumented in this encounter Care Teams Network Security Architect Relationship Specialty Start Date End Date Alvarez Rae MD [address] [place] [address] PCP - General Family Medicine 03/19/23 documented as of this encounter
--- OUTSIDE RECORDS SUMMARY | 2025-07-08 08:53 | XMS_ITS | Clinical Summary ---
Author Organization [facility] Address [address] [place] [address] Care Team Providers Care Powder Mill Operator Name Role Phone Alvarez Rae MD Primary Care Provider +1- [phone] Allergies Active Allergy Reactions Criticality Noted Date [...] TIMES A DAY WITH MEALS. 180 tablet 3 5 Active carvedilol (COREG) 12.5 MG tablet TAKE 1 TABLET BY MOUTH 2 (TWO) TIMES A DAY WITH MEALS. 180 tablet 5 06/22/20 25 Discontinued Active Problems Problem Noted Date [...] warning about possible battery life being inaccurate. [employer] is going to come out today and check the downloaded information on the principal programmer and [employer] services. Assessment & Plan (03/17/2024 11:00 AM [...] for primary prevention, Dr. Fabio Fernandes, 06/30/2015: [employer] D140. d. DEVICE INTERROGATION: 11/08/2015; Patient [...] Encounters Date Type Department Care Team Description 06/19/2025 Refill [facility] [address] [place] [address] Kim Daigle MD Med Refill from Last 3 Months Family [...] Description 08/31/2025 10:30 AM EST Ancillary Procedure [facility] [address] [place] [address] [place] [address] 08/31/2025 11:30 AM EST Office Visit [facility] [address] [place] [address] [place] [address] Caron Maldonado, ESTHER [address] [place] [address] [place] [address] 09/14/2025 10:30 AM EST Office Visit [facility] [address] [place] [address] [place] [address] Kim Daigle MD [address] [place] [address] [place] [address] 09/14/2025 10:30 AM EST Clinical Support No Requirements [facility] [address] [place] [address] [place] [address] Health Maintenance Due Date [...] Date/Time Associated Diagnosis Comments REMOTE DEVICE CHECK 06/23/2025 3 :41 AM EST HEPATITIS PANEL, ACUTE Routine 03/06/2015 7:56 AM EDT from Last 3 Months or Most Recently Relevant to Health Maintenance Results * Hepatitis panel, acute (03/06/2015 7:56 AM EDT) Hepatitis B Surface Ag NonReactive NONREACTIVE [facility] Comment: DF by IF @ 03/06/2015 09:34 TEST INFORMATION: Hepatitis B Surface Antigen The intended use of this Hepatitis B Surface Antigen assay is for clinical diagnosis only. Hep A IgM NonReactive NONREACTIVE [facility] Hep B Core IgM NonReactive NONREACTIVE B [facility] Comment: DF by IF @ 03/06/2015 09:34 TEST INFORMATION: Hepatitis B Core Antibody, IgM The intended use of this Hepatitis B Core Antibody, IgM assay is for clinical diagnosis only. Hep C Virus Ab NonReactive NONREACTIVE B [facility] Comment: DF by IF @ [...] specimen (specimen) 03/06/2015 7:56 AM EDT Narrative [facility] - 03/06/2015 9:34 AM EDT Specimen Type: Blood us Michael Figueroa MD LAB BLOOD ORDERABLES Emelina esteves Result [facility] [address] [place] [address], from Last 3 Months or Most Recently Relevant to Health Maintenance Insurance [employer] MED[employer]VANTAGE PPO Care Teams Powder Mill Operator Relationship Specialty Start Date End Date Alvarez Rae MD [address] [place] [address] PCP - General Family Medicine 03/19/23
--- OUTSIDE RECORDS SUMMARY | 2025-07-08 08:53 | XMS_ITS | Encounter Summary ---
Author Organization [facility] Address [address] [place] [address] Care Team Providers Care Peach Grower Name Role Phone Alvarez Rae MD Primary Care Provider +1- [phone] Reason for Visit * Reason Comments Med Refill Encounter Details Date Type Department Care Team (Late st Contact Info) Description 10/06/2023 Refill [facility] [address] [place] [address] Kim Daigle MD [address] [place] [address] Med Refill Social History Tobacco Use [...] Description 08/31/2025 10:30 AM EST Ancillary Procedure [facility] [address] [place] [address] [place] [address] 08/31/2025 11:30 AM EST Office Visit [facility] [address] [place] [address] [place] [address] Caron Maldonado APRN [address] [place] [address] [place] [address] 09/14/2025 10:30 AM EST Office Visit [facility] [address] [place] [address] [place] [address] Kim Daigle MD [address] [place] [address] [place] [address] 09/14/2025 10:30 AM EST Clinical Support No Requirements [facility] [address] [place] [address] [place] [address] documented as of this encounter Visit Diagnoses Not on filedocumented in this encounter Care Teams Peach Grower Relationship Specialty Start Date End Date Alvarez Rae MD [address] [place] [address] PCP - General Family Medicine 03/19/23 documented as of this encounter
== END 2025-07-06 23:59 | disposition home or self-care (01) ==
LOC: LAB.DROPOF 07-08 08:41
PROVIDERS: PCP Family Medicine; Visit Provider Nurse Practitioner Family
DX: Z79.01 Long term (current) use of anticoagulants (principal)
CPT/HCPCS: 85610